=== PATIENT | female | born 1940 | race Caucasian/White ===

== ENCOUNTER → 2016-11-14 | Outpatient (CLI) | payer OTHER | LOC: RAD 11:29 | DX: R60.9 Edema, unspecified (principal) ==

== ENCOUNTER 2020-09-06 20:40 | Inpatient (IN) | payer OTHER ==
[~2020-09-06] VITALS: Ht 165.1 cm; Wt 80.7 kg
--- NOTE | ~2020-09-06 | EKG ---
[facility] [place] [address] ELECTROCARDIOGRAM REPORT Name: RAVIN ALLEN Room #: 170-14 ADM IN M.R.#: [id number] Admission: 09/06/20 Attend Phys: Samina Marie MD Discharge: Date of : 36 Report #: [id number] THIS REPORT FOR: cc: Homar Fofana MD, Eric K. MD Epiphany, Epiphany MD ~ THIS REPORT FOR: //name// [facility] ED Test Date: 2020-09-07 Test Time: 03:12:33 Pat Name: RAVIN ALLEN Department: Room: 170 14 Gender: F It Consulting Director: AZAR : 1940 Requested By: Elicia Keenan Order Number: [id number] MD: Measurements Intervals [place] Rate: 53 P: 81 [place]: 192 QRS: -30 QRSD: 143 T: 62 QT: 469 QTc: 441 Interpretive Statements Sinus rhythm Right bundle branch block Left ventricular hypertrophy Anterior infarct, acute (LAD) Compared to ECG 09/06/2020 20:55:17 Myocardial infarct finding now present Ventricular premature complex(es) no longer present Left anterior fascicular block no longer present [email or web address] By: 1 1 Epiphany Epiphany, /DENA
[2020-09-06 20:44] VITALS: BP 194/74
[2020-09-06] MEDS ORDERED: NORVASC5 MG PO (21:16)
[2020-09-06 21:28] LABS: HEMATOCRIT 37.7 % (37.0-47.0); HEMOGLOBIN 12.7 gm/dL (12.0-15.0); MCH 29.4 pg (26.0-34.0); MCHC 33.7 g/dL (28.0-37.0); MCV 87.5 fL (80.0-100.0); RBC 4.3 mil/uL (4.20-5.00); RDW 13.5 % (10.5-14.5); WBC 11.6 thou/uL (4.0-11.0)
[2020-09-06 21:32] LABS: CALCIUM 9.5 mg/dL (8.5-10.1); POTASSIUM 3.9 mmol/L (3.5-5.1)
[2020-09-06 21:41] LABS: TROPONIN-I 0.09 ng/mL (<0.06)
[2020-09-07 03:24] LABS: BE(vivo) 1.4 mmol/L (-2 to +3); PCO2 41.1 mmHg (35.0-45.0); PO2 437.5 mmHg (80.0-100.0); pH 7.419 (7.360-7.450); sO2 99.8 % (92.0-98.0)
[2020-09-07 07:16] VITALS: BP 132/64
[2020-09-07 07:53] VITALS: BP 109/70
[2020-09-07 08:15] VITALS: BP 142/57
--- NOTE | 2020-09-07 11:47 | 2DMMODE ---
[facility] [place] [address] 2 D/M-MODE ECHOCARDIOGRAM Name: RAVIN ALLEN Room #: 200-I ADM IN M.R.#: [id number] Admission: 09/06/20 Attend Phys: Samina Marie MD Discharge: Date of : 36 Report #: [id number] THIS REPORT FOR: cc: Homar Fofana MD, Eric K. MD Lammoglia, Francisco J. MD ~ APPROVED REPORT Study performed: 09/07/2020 10:34:41 EXAM: Comprehensive 2D, Doppler, and color-flow Echocardiogram Patient Location: Bedside Room #: 200 Status: routine BSA: 1.82 HR: 58 bpm Rhythm: NSR Other Information Study Quality: Good Indications HTN, elevated troponin. Hx: DM. 2D Dimensions RVDd: 32.04 mm IVSd: 11.23 (7-11mm) LVOT Diam: 19.08 (18-24mm) LVDd: 42.67 mm PWd: 10.62 (7-11mm) Ascending Ao: 30.69 (22-36mm) LVDs: 29.39 (25-40mm) Aortic Root: 29.37 mm Volumes Left Atrial Volume (Systole) Single Plane 4CH: 38.24 mL Single Plane 2CH: 30.51 mL LA ESV Index: 21.00 mL/m2 Aortic Valve AoV Peak Wilbur.: 1.31 m/s AO Peak Gr.: 6.84 mmHg LVOT Max P.73 mmHg LVOT Max V: 1.30 m/s EH Vmax: 2.[address] [facility] [address] [place] [address] 2 D/M-MODE ECHOCARDIOGRAM Name: NIKKIRAKELROLORAVIN VELASQUEZ Room #: 200-I [facility] IN [facility].#: [id number] Admission: 09/06/20 Attend Phys: Estuardo Santiago Discharge: Date of : 36 Report #: [id number] Mitral Valve E/A Ratio: 0.8 MV Decel. Time: 277.84 ms MV E Max Wilbur.: 0.72 m/s MV A Wilbur.: 0.91 m/s MV PHT: 80.57 ms IVRT: 143.02 ms Pulmonary Valve PV Peak Wilbur.: 0.83 m/s PV Peak Gr.: 2.77 mmHg Pulmonary Vein P Vein S: 0.38 m/s P Vein A: 0.20 m/s P Vein D: 0.31 m/s P Vein A Dur.: 156.9 msec P Vein S/D Ratio: 1.23 Tricuspid Valve TR Peak Wilbur.: 2.71 m/s RAP Estimate: 5.00 mmHg TR Peak Gr.: 29.31 mmHg PA Pressure: 34.00 mmHg Left Ventricle The left ventricle is normal size. There is normal LV segmental wall motion. Mild concentric left ventricular hypertrophy. The left ventricular systolic function is normal. LVEF is 65-70%. Grade I - abnormal relaxation pattern. Right Ventricle The right ventricle is normal size. The right ventricular systolic function is normal. Atria The left atrium size is normal. The right atrium size is normal. Aortic Valve Aortic valve is mildly calcified. Trivial aortic regurgitation is present. There is no aortic valvular stenosis. Mitral Valve The mitral valve is normal in structure. Trace mitral regurgitation. No evidence of mitral valve stenosis. Tricuspid Valve The tricuspid valve is normal in structure. Mild tricuspid regurgitation. Estimated PAP 35mmHg. [facility] [place] [address] 2 D/M-MODE ECHOCARDIOGRAM Name: RAVIN ALLEN Room #: 200-I ADM IN M.R.#: [id number] Admission: 09/06/20 Attend Phys: Estuardo Santiago Discharge: Date of : 36 Report #: [id number] Pulmonic Valve The pulmonary valve is normal in structure. Trace pulmonic regurgitation. Great Vessels The aortic root is normal in size. The ascending aorta is normal in size. IVC is normal in size and collapses >50% with inspiration. Pericardium There is no pericardial effusion. <Conclusion> The left ventricle is normal size. LVEF is 65-70%. Mild concentric left ventricular hypertrophy. Aortic valve is mildly calcified. Trivial aortic regurgitation is present. There is no aortic valvular stenosis. The mitral valve is normal in structure. Trace mitral regurgitation. The tricuspid valve is normal in structure. Mild tricuspid regurgitation. Estimated PAP 35mmHg. There is no pericardial effusion. <ELECTRONICALLY SIGNED> By: Benton Thomas MD 09/07/20 1147 114 114 Benton Thomas MD /INF
--- NOTE | 2020-09-07 12:37 | EKG ---
[facility] [place] [address] ELECTROCARDIOGRAM REPORT Name: RAVIN ALLEN Room #: 200-I ADM IN M.R.#: [id number] Admission: 09/06/20 Attend Phys: Samina Marie MD Discharge: Date of : 38 Report #: [id number] THIS REPORT FOR: cc: Homar Fofana MD, Eric K. MD Santiago, Patrick MD [facility] THIS REPORT FOR: //name// [facility] ED Test Date: 2020-09-06 Test Time: 20:55:17 Pat Name: RAVIN ALLEN Department: Room: 200 I Gender: F Balloon Pilot: LILLIE : 1940 Requested By: Samina Marie Order Number: [id number] MD: Facundo Castellanos Measurements Intervals [place] Rate: 79 P: 91 NE: 169 QRS: -65 QRSD: 141 T: 63 QT: 399 QTc: 458 Interpretive Statements Sinus rhythm Ventricular premature complex RBBB and LAFB Left ventricular hypertrophy No previous ECG available for comparison Electronically Signed On 09-07-2020 12:37:13 CDT by Facundo Castellanos [email or web address] <ELECTRONICALLY SIGNED> By: Facundo Castellanos MD, FACC 09/07/20 1237 54 54 Facundo Castellanos MD, FACC /EPI
--- NOTE | 2020-09-07 12:38 | EKG ---
[facility] [address] [address] [place] [address] ELECTROCARDIOGRAM REPORT Name: RAVIN ALLEN Room #: 200-I ADM IN M.R.#: [id number] Admission: 09/06/20 Attend Phys: Samina Marie MD Discharge: Date of : 38 Report #: [id number] THIS REPORT FOR: cc: Homar Fofana MD, Eric K. MD Santiago, Patrick MD [facility] ~ THIS REPORT FOR: //name// [facility] ED Test Date: 2020-09-07 Test Time: 03:12:33 Pat Name: RAVIN ALLEN Department: Room: 200 I Gender: F Granulator Tender: AZAR : 1940 Requested By: Samina Marie Order Number: [id number] MD: Facundo Castellanos Measurements Intervals [place] Rate: 53 P: 81 [place]: 192 QRS: -30 QRSD: 143 T: 62 QT: 469 QTc: 441 Interpretive Statements Sinus rhythm Right bundle branch block Left ventricular hypertrophy [address] elevation V1-3 ( no change from 09/06/20) Compared to ECG 09/06/2020 20:55:17 No significant change Electronically Signed On 09-07-2020 12:38:21 CDT by Facundo Castellanos [email or web address] <ELECTRONICALLY SIGNED> By: Facundo Castellanos MD, FACC 09/07/20 1238 1 1 Facundo Castellanos MD, FAC /EPI
--- NOTE | 2020-09-07 12:39 | EKG ---
[facility] [place] [address] ELECTROCARDIOGRAM REPORT Name: RAVIN ALLEN Room #: 200-I ADM IN M.R.#: [id number] Admission: 09/06/20 Attend Phys: Samina Marie MD Discharge: Date of : 38 Report #: [id number] THIS REPORT FOR: cc: Homar Fofana MD, Eric K. MD Santiago, Patrick MD [facility] ~ THIS REPORT FOR: //name// [facility] ED Test Date: 2020-09-07 Test Time: 03:47:37 Pat Name: RAVIN ALLEN Department: Room: 200 I Gender: F Ultrasound Supervisor: AZAR : 1940 Requested By: Samina Marie Order Number: [id number] MD: Facundo Castellanos Measurements Intervals [place] Rate: 57 P: 67 [place]: 202 QRS: -32 QRSD: 147 T: 33 QT: 481 QTc: 469 Interpretive Statements Sinus rhythm Right bundle branch block LVH with secondary repolarization abnormality Baseline wander in lead(s) V4 Compared to ECG 09/07/2020 03:12:33 No significant change Electronically Signed On 09-07-2020 12:39:28 CDT by Facundo Castellanos [email or web address] <ELECTRONICALLY SIGNED> By: Facundo Castellanos MD, FACC 09/07/20 1239 6 6 Facundo Castellanos MD, FACC /EPI
[2020-09-07] MEDS ORDERED: NORVASC 2.5 MG2.5 M1 PO (14:23)
[2020-09-07] MEDS ORDERED: GLIPIZIDE 10 MG10 MG PO (14:26)
[2020-09-07] MEDS ORDERED: GABAPENTIN100 MG PO (14:28)
[2020-09-07] MEDS ORDERED: HYDROCHLOROTHIA25 M2 PO (14:29)
[2020-09-07] MEDS ORDERED: METFORMIN HCL500 M3 PO (14:32)
[2020-09-07] MEDS ORDERED: BENICAR40 MG PO (14:34)
[2020-09-07] MEDS ORDERED: TOPAMAX100 MG PO (14:36)
[2020-09-07 17:00] VITALS: BP 148/69
--- NOTE | 2020-09-07 18:06 | NUR ---
AAOX4. CALM, COOPERATIVE. SR PER TELE. DENIES CP. TROPONINS NOTED. DR. DASH HERE; LEFT HEART CATH TOMORROW. #20 DISTAL RIGHT FOREARM. MEDS RECONCILIATED BY CALLING HER PHARMACY. WILL CONTINUE TO FOLLOW CLOSELY.
[2020-09-07 20:03] VITALS: BP 142/54
[2020-09-07 20:09] VITALS: BP 132/64
--- NOTE | 2020-09-07 20:10 | NUR ---
NO [id number] NOTLARISA. EVER TV THIS EVENING
[2020-09-08] VITALS (14 sets, daily range): BP systolic 130–167; BP diastolic 56–91
[2020-09-08 00:06] LABS: GLYCOHEMOGLOBIN (HGB A1C) 6.9 % (4.8-5.6)
--- NOTE | 2020-09-08 04:24 | NUR ---
PT IS ALERT AND ORIENTED X4. LUNGS ARE CLEAR. ABDOMEN IS ROND AND SOFT. UP AMBULATING HALLWAYS. NPO SINCE MIDNIIGHT FOR POSSIBLE PROCEDURE. SINUS LOVE ON THE MANAGER PLUMBING. DENIES ANY PAIN ISSUES. WILL CONTINUE TO ASSESS AND MONIOR PER NURSING.
[2020-09-08 06:00] LABS: HEMOGLOBIN 12.4 gm/dL (12.0-15.0); MCH 29.2 pg (26.0-34.0); MCHC 32.6 g/dL (28.0-37.0); MCV 89.4 fL (80.0-100.0); RBC 4.25 mil/uL (4.20-5.00); RDW 13.7 % (10.5-14.5); WBC 10.5 thou/uL (4.0-11.0)
[2020-09-08 06:21] LABS: CALCIUM 9.1 mg/dL (8.5-10.1); MAGNESIUM 1.9 mg/dL (1.8-2.4); POTASSIUM 3.4 mmol/L (3.5-5.1)
--- NOTE | 2020-09-08 08:21 | EKG ---
[facility] [place] [address] ELECTROCARDIOGRAM REPORT Name: RAVIN ALLEN Room #: 200-I ADM IN M.R.#: [id number] Admission: 09/06/20 Attend Phys: Samina Marie MD Discharge: Date of : 38 Report #: [id number] THIS REPORT FOR: cc: Homar Fofana MD, Eric K. MD Lundgren,Ab Lechuga MD [facility] ~ THIS REPORT FOR: //name// [facility] Test Date: 2020-09-08 Test Time: 07:47:41 Pat Name: RAVIN ALLEN Department: Room: 200 I Gender: F Corporate Risk Analyst: BA : 1940 Requested By: Rolando Lopez Order Number: [id number] MD: Ab Lema Measurements Intervals [place] Rate: 69 P: 47 [place]: 192 QRS: -47 QRSD: 145 T: 37 QT: 437 QTc: 469 Interpretive Statements Sinus rhythm RBBB and LAFB Left ventricular hypertrophy Compared to ECG 09/07/2020 03:47:37 No significant change was found Electronically Signed On 09-08-2020 8:21:34 CDT by Ab Lema [email or web address] <ELECTRONICALLY SIGNED> By: Ab Lema MD, FAC 09/08/20 0821 Ab Lema MD, [facility] /EPI
--- NOTE | 2020-09-08 11:25 | NUR ---
Chart reveiwed and case discussed with the care team. Pt down for cardiac cath this morning. Pt reported to be a&ox4 and up ambulating in the hallways. Pt was cleared by PT/OT yesterday and is normally indep at home. She lives with her spouse and has one step to enter their ranch style home. Pt's spouse does most of the driving. The pt does not use an assistive device. Her PCP is Dr. Homar Fofana. No dc planning needs identified. Will remain available should dc needs arise. DC home later today or tomorrow.
--- NOTE | 2020-09-08 13:46 | CATHLAB ---
[facility] [place] [address] INVASIVE PROCEDURE REPORT Name: RAVIN ALLEN Room #: 200-I ADM IN M.R.#: [id number] Admission: 09/06/20 Attend Phys: Samina Marie MD Discharge: Date of : 38 Report #: [id number] THIS REPORT FOR: cc: Homar Fofana MD, Eric K. MD Park, Jin S. MD ~ APPROVED REPORT Study performed: 09/08/2020 09:04:12 Patient Details Patient Status: In-Patient Room #: 200 The patient is a 80 year-old female Event Personnel Rolando Lopez Alterations Expert, Zarina Herrera RTR Monitor, Chiqui Gonzalez RTR, Daniel Reed Tony RN debit agent Performed Art Access - R femoral artery* Left Heart Cath w/or w/o Coronaries [id number] [facility] [address] Initial Mod Sed Same Phys/QHP Gr5y [id number] 81422 Mod Sed Same Phys/QHP Ea [id number] Hemostasis Indication Abnormal ECG, Non-STEMI , Dizziness and vertigo, The patient presented with dizziness/fatigue, found to have hypertensive urgency. Evaluation revealed elevation in troponin levels with abnormal ECG. Risk Factors HypercholesterolemiaPhysical Activity, Hypertension Procedure Narrative The Right Groin^ was infiltrated with 1% Lidocaine subcutaneous anesthesia. A PINNACLE 4FR Sheath #[id number] sheath was inserted into the RFA^. Coronary angiography was performed using coronary diagnostic catheters. The right coronary system was accessed and visualized with a JR4 catheter. The left coronary system was accessed and visualized with a JL4 catheter. The left ventricle was accessed and visualized with a PIGTAIL catheter. Hemostasis was obtained with manual pressure following sheath removal without any complications. The patient tolerated the procedure well and there were no complications associated with the procedure. There was no hematoma. [facility] [place] [address] INVASIVE PROCEDURE REPORT Name: CANDACEROLORAVIN RON Room #: 200-I ADM IN ..#: [id number] Admission: 09/06/20 Attend Phys: Estuardo Santiago Discharge: Date of : 38 Report #: [id number] Intraoperative Conscious Sedation Sedation start time: 9:28 Case end Time: 9:59 Fentanyl 100 mcg Versed 2 mg Fluoro Time: 3.50 minutes Dose: DAP 3013.00 cGycm2 807 mGy Contrast Type and Amount: Visipaque 40 ml Coronary Angiography The patient's coronary anatomy is right dominant. Diagnostic Cath Left Main The left main artery is a large-caliber vessel, patent with no flow-limiting lesions. LAD The LAD is a moderate-sized caliber vessel, traversing the anterior wall and wrapping around the apex. There is a mild stenosis in the midsegment, 20%. Diagonal 1 This is a moderate-sized caliber vessel, patent with no flow-limiting lesions. Circumflex This is a moderate-sized caliber vessel, patent with no flow-limiting lesions. OM1 This is a moderate-sized caliber vessel, patent with no flow-limiting lesions. OM2 This is a moderate-sized caliber vessel, patent with no flow-limiting lesions. Right Coronary The RCA is a dominant vessel, appears angiographically normal. R PDA This is a moderate-sized caliber vessel, patent with no flow-limiting lesions. RPLV This is a moderate-sized caliber vessel, patent with no flow-limiting lesions. Left Ventriculography Left Ventriculography was not performed. Ejection Fraction was >55% based off patient's Echocardiogram. An LVEDP was measured and there is no gradient across the outflow tract. Hemodynamics The aortic pressure is 153/68 mmHg with a mean of 61 mmHg. The left ventricular pressure is 132/8 mmHg with a mean of mmHg. The left ventricular end diastolic pressure is 10 mmHg. Conclusion 1. 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 [address] [address] INVASIVE PROCEDURE REPORT Name: TIFFANYRAVIN VELASQUEZ Room #: 200-I ADM IN M.R.#: [id number] Admission: 09/06/20 Attend Phys: Estuardo Santiago Discharge: Date of : 38 Report #: [id number] 2. This is a right dominant system. 3. There is normal LV systolic function. 4. Recommend guideline directed medical therapy and risk factor management. <ELECTRONICALLY SIGNED> By: Rolando Lopez MD 09/08/201345 45 45 Rolando Lopez MD /INF
--- NOTE | 2020-09-08 19:32 | NUR ---
ASSUMED CARE AT CHANGE OF SHIFT. HEART CATH WITHOUT STENT PLACEMENT TODAY. RIGHT GROIN SIGHT C/D/I. UP AB PAT. VSS, DENIES SOB, DENIES PAIN. CALL LIGHT AND PERSONAL ITEMS IN REACH. LIKEY DC TOMORROW.
--- NOTE | 2020-09-09 00:31 | NUR ---
PT UP TO BATHROOM AND AMBULATING HALLS WITH OUT ANY COMPLAINTS, CALLED OUT THAT IV WAS BLEEDING, CHANGED DRESSING AND WRAPPED IN COBAN IV FLUSHES WITH OUT LEAKING NOW, NO C/O PAIN, HOPING TO GO HOME IN AM.
[2020-09-09 03:29] VITALS: BP 159/75
[2020-09-09 05:38] LABS: HEMATOCRIT 35.8 % (37.0-47.0); HEMOGLOBIN 11.8 gm/dL (12.0-15.0); MCH 29.4 pg (26.0-34.0); MCHC 32.9 g/dL (28.0-37.0); MCV 89.2 fL (80.0-100.0); RBC 4.01 mil/uL (4.20-5.00); RDW 13.7 % (10.5-14.5); WBC 10.4 thou/uL (4.0-11.0)
[2020-09-09 05:45] LABS: CALCIUM 8.8 mg/dL (8.5-10.1); CREATININE 0.9 mg/dL (0.6-1.0); POTASSIUM 3.3 mmol/L (3.5-5.1)
[2020-09-09 07:35] VITALS: BP 166/59
[2020-09-09] MEDS ORDERED: BENICAR40 MG PO (08:42)
[2020-09-09] MEDS ORDERED: CHLORTHALIDONE25 MG PO (08:42)
[2020-09-09] MEDS ORDERED: LIPITOR 20 MG T20 M1 PO (08:42)
[2020-09-09] MEDS ORDERED: ASPIR 8181 MG PO (08:42)
[2020-09-09] MEDS ORDERED: AMLODIPINE BESY10 MG PO (08:42)
[2020-09-09] MEDS ORDERED: LYRICA 75 MG CA75 MG PO (11:25)
[2020-09-09] MEDS ORDERED: PEPCID20 MG PO (11:25)
[2020-09-09] MEDS ORDERED: COREG6.25 MG PO (11:25)
[2020-09-09 12:04] VITALS: BP 166/59
== END 2020-09-09 13:44 | disposition home or self-care (01) | DRG 282 ==
LOC: ER 20:40 → 2N 23:48 → EROBS 23:48 → 2N 09-07 08:09
PROVIDERS: Emergency Medicine; Internal Medicine Cardiovascular Disease; Nurse Practitioner Family; ADMIT Hospitalist; ATTEND Hospitalist
DX: I16.1 Hypertensive emergency (principal); I21.A1 Myocardial infarction type 2; I25.10 Atherosclerotic heart disease of native coronary artery without angina pectoris; E11.9 Type 2 diabetes mellitus without complications; G43.909 Migraine, unspecified, not intractable, without status migrainosus; Z96.652 Presence of left artificial knee joint; G25.81 Restless legs syndrome; E87.6 Hypokalemia; R77.8 Other specified abnormalities of plasma proteins; I10 Essential (primary) hypertension; Z90.710 Acquired absence of both cervix and uterus; Z85.3 Personal history of malignant neoplasm of breast; Z90.12 Acquired absence of left breast and nipple; Z88.0 Allergy status to penicillin; Z83.3 Family history of diabetes mellitus; Z82.49 Family history of ischemic heart disease and other diseases of the circulatory system; Z80.8 Family history of malignant neoplasm of other organs or systems; Z79.899 Other long term (current) drug therapy; Z28.21 Immunization not carried out because of patient refusal
CPT/HCPCS: 10081

== ENCOUNTER → 2020-09-24 | Outpatient (CLI) | payer OTHER ==
[~2020-09-24] MED LIST: AMLODIPINE BESY10 MG PO; ASPIR 8181 MG PO; BENICAR40 MG PO; CHLORTHALIDONE25 MG PO; COREG6.25 MG PO; GABAPENTIN100 MG PO; GLIPIZIDE 10 MG10 MG PO; HYDROCHLOROTHIA25 M2 PO; LIPITOR 20 MG T20 M1 PO; LYRICA 75 MG CA75 MG PO; METFORMIN HCL500 M3 PO; NORVASC 2.5 MG2.5 M1 PO; NORVASC5 MG PO; PEPCID20 MG PO; TOPAMAX100 MG PO
== END ==
LOC: SJCVC 09:49
PROVIDERS: ATTEND Internal Medicine Cardiovascular Disease
DX: R94.31 Abnormal electrocardiogram [ECG] [EKG] (principal); I49.9 Cardiac arrhythmia, unspecified; I45.10 Unspecified right bundle-branch block; I25.10 Atherosclerotic heart disease of native coronary artery without angina pectoris; I10 Essential (primary) hypertension; R00.2 Palpitations; E11.9 Type 2 diabetes mellitus without complications; Z79.899 Other long term (current) drug therapy

== ENCOUNTER → 2021-03-25 | Outpatient (CLI) | payer OTHER | LOC: SJCVC 10:38 | PROVIDERS: ATTEND Internal Medicine Cardiovascular Disease | DX: R94.31 Abnormal electrocardiogram [ECG] [EKG] (principal); I49.8 Other specified cardiac arrhythmias; R00.1 Bradycardia, unspecified; I45.10 Unspecified right bundle-branch block; I25.10 Atherosclerotic heart disease of native coronary artery without angina pectoris; I10 Essential (primary) hypertension; E78.00 Pure hypercholesterolemia, unspecified; R60.9 Edema, unspecified; G25.81 Restless legs syndrome; E11.9 Type 2 diabetes mellitus without complications; Z88.0 Allergy status to penicillin; Z79.899 Other long term (current) drug therapy; Z79.82 Long term (current) use of aspirin; Z85.3 Personal history of malignant neoplasm of breast ==